=== PATIENT | female | born 1950 | race American Indian/Alaskan Native ===

== ENCOUNTER 2017-06-20 06:27 | Day surgery (SDC) | payer MEDICARE ==
[2017-06-20 07:04] VITALS: RESP 14
[2017-06-20 07:21] VITALS: BMI 28.2
[2017-06-20] MEDS ORDERED: Simethicone 40 mg/0.6 ml Liquid (30 ml) ONE (08:11)
[2017-06-20] MEDS ORDERED: Propofol 10 mg/ml Inj (20 ML) ONE (08:19)
[2017-06-20] MEDS ORDERED: Lidocaine 2% Inj (20ml) ONE (08:21)
[2017-06-20] MEDS ORDERED: Sodium Chloride 0.9% 1,000 ML IV SCH (09:00)
[2017-06-20 09:55] VITALS: BP 162/75; PULSE 67; TEMP 98; O2SAT 96
== END 2017-06-20 10:49 | disposition home or self-care (01) ==
LOC: ENDO 06:27
PROVIDERS: ATTEND Internal Medicine Gastroenterology
DX: D12.2 Benign neoplasm of ascending colon (principal); K44.9 Diaphragmatic hernia without obstruction or gangrene; K64.0 First degree hemorrhoids; K82.4 Cholesterolosis of gallbladder; K76.0 Fatty (change of) liver, not elsewhere classified; I10 Essential (primary) hypertension; E11.9 Type 2 diabetes mellitus without complications; E78.5 Hyperlipidemia, unspecified; L65.9 Nonscarring hair loss, unspecified; Z98.42 Cataract extraction status, left eye; Z98.41 Cataract extraction status, right eye
CPT/HCPCS: 43235; 45380; 88305; J2704; J7040 ×2